=== PATIENT | female | born 1955 | race Caucasian/White ===

== ENCOUNTER 2016-07-27 11:09 | Emergency (ER) | payer OTHER, MEDICAID ==
[2016-07-27] MEDS ORDERED: NS 1,000 ML IV ONE (11:25)
[2016-07-27 11:32] LABS: % IMMATURE GRANULYOCYTES 0.7 % (0.0-1.1); ABSOLUTE IMMATURE GRANULOCYTES 0.04 10^3/uL (0.00-0.10); ADD DIFF? NO; ADD MORPH? NO; ADD SCAN? NO; ATYPICAL LYMPHOCYTE FLAG 0 (0-99); FRAGMENT RBC FLAG 0 (0-99); HEMATOCRIT 42.4 % (38.0-47.0); HEMOGLOBIN 14.2 g/dL (12.6-16.3); LEFT SHIFT FLG 10 (0-99); LIPEMIA HEMOLYSIS FLAG 80 (0-99); MEAN CELL HEMOGLOBIN 27.9 pg (27.9-34.1); MEAN CELL HEMOGLOBIN CONCENTR. 33.5 g/dL (32.4-36.7); MEAN CELL VOLUME 83.3 fL (81.5-99.8); MEAN PLATELET VOLUME 10.6 fL (8.7-11.7); PLATELET CLUMPS FLAG 0 (0-99); PLATELET COUNT 160 10^3/uL (150-400); RED BLOOD CELL COUNT 5.09 10^6/uL (4.18-5.33)
[2016-07-27] MEDS ORDERED: INSULIN REGULAR HUMAN 100 UNIT/ML IVP ONE (11:40)
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
[2016-07-27 11:57] LABS: COLOR YELLOW; LEUKOCYTE ESTERASE,URINE NEGATIVE (NEGATIVE); NITRITE,URINE POSITIVE (NEGATIVE)
[2016-07-27 11:59] LABS: BACTERIA 3+ /hpf (NONE SEEN); MUCUS TRACE /lpf (NONE-1+); WBC,URINE 15-25 /hpf (0-3)
[2016-07-27 12:09] LABS: ALKALINE PHOSPHATASE 176 IU/L (38-126); ANION GAP 11 mEq/L (8-16); BILIRUBIN,TOTAL 0.7 mg/dL (0.1-1.4); BILIRUBIN-CONJUGATED 0.4 mg/dL (0.0-0.5); BILIRUBIN-UNCONJUGATED 0.3 mg/dL (0.0-1.1); CARBON DIOXIDE 26 mEq/l (22-31); CHLORIDE 96 mEq/L (97-110); MAGNESIUM 1.8 mg/dL (1.6-2.3); POTASSIUM 5.3 mEq/L (3.5-5.2); SODIUM 133 mEq/L (134-144)
[2016-07-27 13:02] LABS: ALANINE AMINOTRANSFERASE 51 IU/L (9-52); ALBUMIN 4.2 g/dL (3.5-5.0); ASPARTATE AMINOTRANSFERASE 28 IU/L (14-46); CALCIUM 9.9 mg/dL (8.5-10.4); TOTAL PROTEIN 6.6 g/dL (6.3-8.2)
--- NOTE | 2016-07-27 13:03 | DX ---
AP and lateral chest x-ray 1125 hours. History: Chest pain. Hyperglycemia. Possible infection. Findings: Comparison to February 20, 2016. Central vascular port remains in place with tip in the right atrium. Heart size remains mildly enlarg ed. Pulmonary vasculature is not significant engorged. There is once again poor inspiration with comp ressive changes at the lung bases. There is no new consolidation, effusion, or pneumothorax. Osseous structures are unchanged. Impression: 1. Stable mild cardiomegaly. 2. Stable poor inspiration with mild compressive changes at the lung bases.
[2016-07-27 13:12] LABS: GLOMERULAR FILTRATION RATE 57
[2016-07-27 13:47] LABS: B-HYDROXYBUTYRATE 0.11 mmol/L (0.02-0.27)
[2016-07-27 13:55] VITALS: BP 155/67; PULSE 91; RESP 18; TEMP 97.9; O2SAT 97
[2016-07-27 13:58] LABS: GLUCOSE 557 mg/dL (70-100)
== END 2016-07-27 13:54 | disposition home or self-care (01) ==
DX: E11.65 Type 2 diabetes mellitus with hyperglycemia (principal); I10 Essential (primary) hypertension; Z87.891 Personal history of nicotine dependence
CPT/HCPCS: 71020; 96374; 99284; J1815; 82947-QW

== ENCOUNTER → 2016-11-19 | Outpatient (CLI) | payer OTHER, MEDICAID | LOC: FIMAGING 11:57 | PROVIDERS: ATTEND Internal Medicine | DX: R61 Generalized hyperhidrosis (principal); R06.02 Shortness of breath; D64.9 Anemia, unspecified; E03.9 Hypothyroidism, unspecified; E11.9 Type 2 diabetes mellitus without complications ==

== ENCOUNTER 2016-11-29 12:14 | Inpatient (IN) | payer OTHER, MEDICAID ==
[2016-11-29] MEDS ORDERED: IPRATROPIUM/ALBUTEROL 3 ML DEYVIAL IH ONE (12:25)
--- NOTE | 2016-11-29 12:30 | CPEKG ---
Heart Rate: 103 RR Interval: 583 P-R Interval: 136 QRSD Interval: 92 QT Interval: 348 QTC Interval: 456 P [place]: 63 QRS [place]: 51 T Wave [place]: -9 EKG Severity - BORDERLINE ECG - EKG Impression: SINUS TACHYCARDIA EKG Impression: BORDERLINE T ABNORMALITIES, DIFFUSE LEADS Electronically Signed By: Juan Obregon 29-Nov-2016 12:39:36
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
[2016-11-29 12:51] LABS: ADD DIFF? YES; ADD MORPH? NO; ADD SCAN? NO; ATYPICAL LYMPHOCYTE FLAG 20 (0-99); FRAGMENT RBC FLAG 0 (0-99); HEMATOCRIT 35.3 % (38.0-47.0); HEMOGLOBIN 11.3 g/dL (12.6-16.3); LEFT SHIFT FLG 30 (0-99); LIPEMIA HEMOLYSIS FLAG 80 (0-99); MEAN CELL HEMOGLOBIN 26.8 pg (27.9-34.1); MEAN CELL VOLUME 83.6 fL (81.5-99.8); MEAN PLATELET VOLUME 9.4 fL (8.7-11.7); PLATELET CLUMPS FLAG 0 (0-99); PLATELET COUNT 399 10^3/uL (150-400); RED BLOOD CELL COUNT 4.22 10^6/uL (4.18-5.33); RED CELL DISTRIBUTION WIDTH 14.4 % (11.5-15.2)
[2016-11-29 13:01] LABS: INR 1.08 (0.83-1.16); PROTIME(PATIENT) 13.9 SEC (12.0-15.0)
[2016-11-29 13:02] LABS: APTT 27.7 SEC (23.0-38.0)
[2016-11-29 13:10] LABS: ALANINE AMINOTRANSFERASE 44 IU/L (9-52); ALBUMIN 3.9 g/dL (3.5-5.0); ALKALINE PHOSPHATASE 252 IU/L (38-126); ANION GAP 18 mEq/L (8-16); ASPARTATE AMINOTRANSFERASE 28 IU/L (14-46); BILIRUBIN,TOTAL 0.6 mg/dL (0.1-1.4); BILIRUBIN-CONJUGATED 0.6 mg/dL (0.0-0.5); CARBON DIOXIDE 18 mEq/l (22-31); CHLORIDE 106 mEq/L (97-110); CREATININE 1.5 mg/dL (0.6-1.0); ETHANOL SERUM < 10 mg/dL (0-10); GLOMERULAR FILTRATION RATE 35; GLUCOSE 176 mg/dL (70-100); POTASSIUM 3.6 mEq/L (3.5-5.2); SODIUM 142 mEq/L (134-144); TOTAL PROTEIN 6.7 g/dL (6.3-8.2)
[2016-11-29 13:10] LABS: COLOR YELLOW; LEUKOCYTE ESTERASE,URINE 3+ (NEGATIVE); NITRITE,URINE NEGATIVE (NEGATIVE)
[2016-11-29 13:20] LABS: BACTERIA 4+ /hpf (NONE SEEN); MUCUS TRACE /lpf (NONE-1+); RBC,URINE 50-182 /hpf (0-3); WBC,URINE 50-182 /hpf (0-3)
[2016-11-29 13:21] LABS: TROPONIN I 0.017 ng/mL (0-0.034)
[2016-11-29 13:44] LABS: PLATELET ESTIMATE ADEQUATE (ADEQ)
[2016-11-29 13:45] LABS: MICROCYTES 1+; POLYCHROMASIA 1+
[2016-11-29] MEDS ORDERED: AZITHROMYCIN IV 500 MG in D5W 250 ML IV SCH (14:30)
[2016-11-29] MEDS ORDERED: ALBUTEROL 3 ML DEYVIAL IH PRN (15:11)
[2016-11-29] MEDS ORDERED: ZOLPIDEM TARTRATE 5 MG TAB PO PRN (15:11)
[2016-11-29] MEDS ORDERED: ONDANSETRON 4 MG/2 ML VIAL IVP PRN (15:11)
[2016-11-29] MEDS ORDERED: AZITHROMYCIN IV 500 MG in D5W 250 ML IV ONE (15:30)
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
[2016-11-29] MEDS ORDERED: IOPAMIDOL (ISOVUE 370) 100 ML BTL IV ONE (18:11)
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
[2016-11-29] MEDS: ATORVASTATIN CALCIUM 40 MG TAB PO SCH (19:45)
[2016-11-29] MEDS ORDERED: QUETIAPINE FUMARATE 150 MG PO SCH (21:00)
[2016-11-29] MEDS: ARIPiprazole 10 MG TAB PO SCH (21:28)
[2016-11-29] MEDS: lamoTRIgine 100 MG TAB PO SCH (21:29)
[2016-11-29] MEDS: QUEtiapine FUMARATE 100 MG TAB PO SCH (21:29)
[2016-11-29] MEDS: FLUTICASONE HFA 110 MCG MDI IH SCH (21:41)
[2016-11-29] MEDS: HEPARIN 5,000 UNIT/0.5 ML SYR SC SCH (21:49)
[2016-11-29] MEDS: INSULIN GLARGINE 100 UNITS/ML SYRINGE SC SCH (21:49)
[2016-11-29] MEDS: NS 1,000 ML IV SCH (21:52)
--- NOTE | 2016-11-29 23:56 | HOSPPROG ---
Hospitalist Progress Note Assessment/Plan: CRITICAL CARE NOTE, > 90 MINUTES BEDSIDE CRITICAL CARE TIME IN ADDITION TO THE PREVIOUS VISITS OUTLINED IN H&P Called to see patient for stroke alert. The patient became much more alert in the hour or 2 after my initial visit with her. As she became more alert the nurses noticed that she seemed weak on the left side. As I visit the patient she is now much more alert and interactive. However she still is not really speaking and clearly has left-sided weakness in the upper and lower extremities. She has apparently left handed. Looking back through her day in talking with her mother again is unclear when she was really at her baseline neurologically. Mother did notice there was difficulty with the patient's speaking as she arrived home today and began getting the patient brought here to the hospital. Her vital signs have remained reasonably stable through the day. We did do a stat CT scan which is a repeat study which also showed no bleeding and no stroke. I did review those images myself and did not see evidence of acute abnormality. We had her examined by telemedicine with Dr. Courtney at [facility], and he agreed with her finding of acute left-sided weakness and expressive aphasia. We then proceeded to have her get CT angio of the head and neck which did not show any evidence of acute thrombi or critical stenosis requiring intervention. There is some concern for possible atherosclerosis and it is suggested that Doppler ultrasound may be useful to further assess this as there was enough motion artifact make it hard to assess the exact severity. This is per my review of these films with Dr. Tamir Drake. she has now returned back to the icu. I was present with the patient throughout this process. At this point there is no indication for any vascular intervention. She arrives here with unknown time of onset of her stroke symptoms and has been at the hospital now for 6 hours and is not therefore able to receive tPA safely. We will follow non tPA stroke protocols DIAGNOSIS: ACUTE STROKE, ISCHEMIC WITH LEFT-SIDED WEAKNESS AND SPEECH A DENNIS A Objective: Vital Signs Temp Pulse Resp BP Pulse Ox 36.9 C 67 19 136/58 H 99 11/29/16 23:30 11/29/16 23:30 11/29/16 23:30 11/29/16 23:30 11/29/16 23:30 11/28/16 11/29/16 11/30/16 06:59 06:59 06:59 Intake Total 1855 Output Total 2125 Balance -270 PT 13.9 SEC (12.0-15.0) 11/29/16 12:36 INR 1.08 (0.83-1.16) 11/29/16 12:36 ICD10 Worksheet Patient Problems: Problems Problem Status Onset Acute bronchitis Acute Anaphylaxis Acute Bilateral visual loss Acute Dehydration Acute Epilepsy Acute Medication overdose Acute Pyelonephritis Acute Urinary tract infection Acute Wound abscess Acute
[2016-11-30] MEDS: LEVOTHYROXINE 150 MCG TAB PO SCH (05:32)
[2016-11-30] MEDS: HEPARIN 5,000 UNIT/0.5 ML SYR SC SCH ×3 (05:45→21:14)
[2016-11-30] MEDS: NS 1,000 ML IV SCH ×2 (05:45→23:48)
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
[2016-11-30] MEDS ORDERED: AZITHROMYCIN IV 250 MG in D5W 250 ML IV SCH (09:00)
[2016-11-30] MEDS: FLUTICASONE HFA 110 MCG MDI IH SCH ×2 (09:20→20:47)
[2016-11-30 09:29] LABS: ADD DIFF? YES; ADD MORPH? NO; ADD SCAN? NO; ATYPICAL LYMPHOCYTE FLAG 20 (0-99); FRAGMENT RBC FLAG 0 (0-99); HEMOGLOBIN 10.6 g/dL (12.6-16.3); LEFT SHIFT FLG 40 (0-99); LIPEMIA HEMOLYSIS FLAG 80 (0-99); MEAN CELL HEMOGLOBIN 26.8 pg (27.9-34.1); MEAN CELL HEMOGLOBIN CONCENTR. 31.2 g/dL (32.4-36.7); MEAN CELL VOLUME 86.1 fL (81.5-99.8); MEAN PLATELET VOLUME 9.5 fL (8.7-11.7); PLATELET CLUMPS FLAG 10 (0-99); PLATELET COUNT 369 10^3/uL (150-400); RED BLOOD CELL COUNT 3.95 10^6/uL (4.18-5.33); RED CELL DISTRIBUTION WIDTH 14.6 % (11.5-15.2)
[2016-11-30] MEDS: LORazepam 2 MG/ML INJ IV PRN (09:44)
[2016-11-30 09:56] LABS: PLATELET ESTIMATE ADEQUATE (ADEQ)
[2016-11-30 09:58] LABS: ANION GAP 8 mEq/L (8-16); CALCIUM 8.6 mg/dL (8.5-10.4); CARBON DIOXIDE 22 mEq/l (22-31); CHLORIDE 113 mEq/L (97-110); CREATININE 0.9 mg/dL (0.6-1.0); GLOMERULAR FILTRATION RATE > 60; GLUCOSE 181 mg/dL (70-100); MAGNESIUM 1.5 mg/dL (1.6-2.3); POTASSIUM 3.9 mEq/L (3.5-5.2); SODIUM 143 mEq/L (134-144)
[2016-11-30] MEDS: Liraglutide [Victoza 3-Pak] 1.8 MG SQ SCH (11:30)
[2016-11-30] MEDS: Vilazodone Hcl [Viibryd] 40 MG PO SCH (11:30)
[2016-11-30] MEDS: ATOMOXETINE HCL 100 MG PO SCH (11:35)
[2016-11-30 11:45] LABS: HEMOGLOBIN A1C 8.8 % (4.0-6.0)
[2016-11-30 13:08] LABS: CHOLESTEROL 94 mg/dL (140-220); CHOLESTEROL/HDL RATIO 2.61 RATIO (1.00-4.44); HIGH DENSITY LIPOPROTEIN 36 mg/dL (40-85); LDL/HDL RATIO 0.97 RATIO (1.00-3.22); LOW DENSITY LIPOPROTEIN 35 mg/dL (80-100); NON-HIGH DENSITY LIPOPROTEIN 58 mg/dL (90-129); TRIGLYCERIDE 118 mg/dL (35-135); VERY LOW DENSITY LIPOPROTEINS 23 mg/dL (8-25)
--- NOTE | 2016-11-30 13:30 | ECHO ---
[id number] + + [address] : : [place] [address] : : [phone] + + Adult Echocardiographic Report + + :Name: SRINIVAS TIJERINA JStudy Date: 11/30/2016 09:16 AM : : Hospital Admission Number: [id number] Loc ation: 242: :: 1955 Gender: Female Height: 73 in : :Age: 61 yrs Race: WH Weight: 252 lb : :Reason For Study: Eval for embolic source : : BSA: 2.4 me ters2 : :History: CVA : + + MMode/2D Measurements \T\ Calculations IVSd: 0.90 cm LVIDd: 4.9 cm FS: 48.3 % Ao root diam: 3.2 cm LVPWd: 1.0 cm LVIDs: 2.6 cm EDV(Teich): 115.2 ml ACS: 1.7 cm ESV(Teich): 23.6 ml EF(Teich): 79.5 % Normal Measurement Values: + + :LVIDd (3.5-5.7cm) IVSd (0.6-1.1cm) LVPWd (0.6-1.1cm) Aortic Root (2.0-3.7cm)Left Atrium (1.5-4.0cm): :LV Vol(d) (76-115ml) LV Vol(s) (29-48ml) Ejec Fraction (50-65%)PV Jewel (0.6- 1.2m/s) TV Jewel (0.4-1.0m/s) : :MV E Jewel (0.8-1.0m/s)MV A Jewel (0.3-1.0m/s)LVOT Jewel (0.7-1.2m/s) Asc Ao Jewel ( 0.9-1.8m/s) : + + Doppler Measurements \T\ Calculations MV E max jewel: Ao V2 max: LV V1 max: PA V2 max: 101.7 cm/sec 158.8 cm/sec 100.7 cm/sec 146.6 cm/sec MV A max jewel: Ao max PG: LV V1 max PG: PA max P.9 cm/sec 10.1 mmHg 4.1 mmHg 8.6 mmHg MV E/A: 1.2 TR max jewel: 291.8 cm/sec TR max P.1 mmHg RAP systole: 5.0 mmHg RVSP(TR): 39.1 mmHg Left Ventricle The left ventricle is normal in size. There is normal left ventricular wall thickness. The left ventricular ejection fraction is normal. There is Doppler evidence for diastolic dysfunction. Ejection Fraction = 79%. The left ventricular wall motion is normal. Right Ventricle The right ventricle is normal in size and function. Atria The left atrial size is normal. Right atrial size is normal. Injection of contrast documented no interatrial shunt. The interatrial septum is intact with no evidence for an atrial septal defect. Mitral Valve There is mild mitral annular calcification. There is no evidence of mitral valve prolapse. There is no mitral valve stenosis. There is no mitral regurgitation noted. Tricuspid Valve Normal tricuspid valve. There is trace tricuspid regurgitation. Right ventricular systolic pressure is normal. Aortic Valve The aortic valve is normal in structure and function. The aortic valve is trileaflet. There is no aortic stenosis. There is no aortic insufficiency. Pulmonic Valve The pulmonic valve is normal in structure and function. There is no pulmonic valvular regurgitation. Great Vessels The aortic root is normal size. Pericardium/Pleural There is no pericardial effusion. Conclusion A complete two-dimensional transthoracic echocardiogram was performed (2D, M-mode, Doppler and color flow Doppler). The left ventricular ejection fraction is normal. There is Doppler evidence for diastolic dysfunction. Ejection Fraction = 79%. The left ventricular wall motion is normal. There is mild mitral annular calcification. There is trace tricuspid regurgitation. Right ventricular systolic pressure is normal. The aortic valve is normal in structure and function. The aortic valve is trileaflet. There is no pericardial effusion. Injection of contrast documented no interatrial shunt. The interatrial septum is intact with no evidence for an atrial septal defect. No prior echo Final Reading Physician: Dr Ida Quiroga electronically signed on 11/30/2016 01:29 PM Ordering Physician: Priscila Wild Performed By: Luis A Nam, ROBINSONCS
[2016-11-30] MEDS: DEXMETHYLPHENIDATE PO SCH (13:57)
[2016-11-30] MEDS: lamoTRIgine 100 MG TAB PO SCH ×3 (13:58→21:13)
[2016-11-30] MEDS: FERROUS SULFATE 325 MG TAB PO SCH (13:58)
[2016-11-30] MEDS ORDERED: levETIRAcetam 500 MG in NS 100 ML IV SCH (15:00)
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
[2016-11-30] MEDS: ARIPiprazole 10 MG TAB PO SCH (21:12)
[2016-11-30] MEDS: ATORVASTATIN CALCIUM 40 MG TAB PO SCH (21:12)
[2016-11-30] MEDS: QUEtiapine FUMARATE 100 MG TAB PO SCH (21:13)
[2016-11-30] MEDS: INSULIN GLARGINE 100 UNITS/ML SYRINGE SC SCH (21:57)
[2016-12-01 08:41] LABS: ANION GAP 9 mEq/L (8-16); CALCIUM 8.2 mg/dL (8.5-10.4); CARBON DIOXIDE 22 mEq/l (22-31); CHLORIDE 114 mEq/L (97-110); CREATININE 0.8 mg/dL (0.6-1.0); GLOMERULAR FILTRATION RATE > 60; GLUCOSE 207 mg/dL (70-100); POTASSIUM 3.7 mEq/L (3.5-5.2); SODIUM 145 mEq/L (134-144)
[2016-12-01] MEDS: FLUTICASONE HFA 110 MCG MDI IH SCH ×2 (09:31→21:06)
[2016-12-01] MEDS: ATOMOXETINE HCL 100 MG PO SCH (10:37)
[2016-12-01] MEDS: Liraglutide [Victoza 3-Pak] 1.8 MG SQ SCH (10:38)
[2016-12-01] MEDS: DEXMETHYLPHENIDATE PO SCH (10:38)
[2016-12-01] MEDS: HEPARIN 5,000 UNIT/0.5 ML SYR SC SCH ×3 (10:38→23:23)
[2016-12-01] MEDS: Vilazodone Hcl [Viibryd] 40 MG PO SCH (10:39)
[2016-12-01] MEDS ORDERED: hydrALAZINE 25 MG TAB PO PRN (10:47)
--- NOTE | 2016-12-01 11:25 | NEUROPROG ---
Assessment: Today's total unit time was 30 minutes. I had a discussion with the patient' s mother regarding her condition and her mother says in the past she did have a spinal cord injury about 20 years ago with quadrant paresis and fairly good recovery and this degree of weakness on the left side is definitely a new problem. The patient has a history of pseudoseizures and perhaps real seizures as well and her mother says she also has had an episode of conversion disorder in which she simulated having a stroke with sheree paresis and was asking whether I thought that might be the current explanation for symptoms given the lack of MRI findings. This is a possibility, but my clinical features actually do not strongly support conversion at this stage in my mind. The occupational therapist felt the same way with her exam. Because of the history of spinal cord injury, I think we better look at the cervical spine with MRI to look for any evidence of compressive lesions there to explain this. Subjective: The patient is complaining of some weakness on the left side as well as having pain in her throat when she coughs and some pain in her left shoulder. She continues to have evidence of weakness when working with therapy. Objective: Vital Signs Temp Pulse Resp BP Pulse Ox 37.1 C 85 18 188/105 H 93 12/01/16 08:00 12/01/16 08:00 12/01/16 08:00 12/01/16 09:11 12/01/16 08:00 Laboratory Results 11/30/16 09:00 12/01/16 07:50 11/30/16 12/01/16 12/02/16 05:59 05:59 05:59 Intake Total 3326 4268 Output Total 2620 1025 Balance 706 3243 PT 13.9 SEC (12.0-15.0) 11/29/16 12:36 INR 1.08 (0.83-1.16) 11/29/16 12:36 The patient has limited cognitive abilities but is able to communicate and follows commands. There is clearly left-sided weakness and I do not think this is purely functional weakness. There is relative hyperreflexia on the left compared to the right. She says sensation is altered in the left leg compared to the right. She had brain MRI that showed no evidence of stroke. Allergies/Adverse Reactions: levofloxacin [From Levaquin] Allergy (Severe, Verified 10/11/15 00:02) Anaphylaxis Penicillins Allergy (Verified 12/01/14 20:04) Sulfa (Sulfonamide Antibiotics) Allergy (Verified 12/01/14 20:04)
[2016-12-01] MEDS ORDERED: hydrALAZINE 10 MG TAB PO PRN (12:12)
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
[2016-12-01] MEDS: lamoTRIgine 100 MG TAB PO SCH ×2 (12:27→20:06)
[2016-12-01 12:37] LABS: % SATURATION 17 % (20-55); TOTAL IRON BINDING CAPACITY 254 ug/dL (260-490)
[2016-12-01] MEDS: FERROUS SULFATE 325 MG TAB PO SCH (12:38)
[2016-12-01] MEDS: LEVOTHYROXINE 150 MCG TAB PO SCH (12:38)
[2016-12-01] MEDS: BENZONATATE 100 MG CAP PO PRN ×2 (16:34→20:37)
[2016-12-01] MEDS: ATORVASTATIN CALCIUM 40 MG TAB PO SCH (18:08)
[2016-12-01] MEDS: LORazepam 2 MG/ML INJ IV PRN (19:10)
[2016-12-01] MEDS: hydrALAZINE 20 MG/ML VIAL IVP PRN (19:18)
[2016-12-01] MEDS: QUEtiapine FUMARATE 100 MG TAB PO SCH (20:06)
[2016-12-01] MEDS: ARIPiprazole 10 MG TAB PO SCH (20:06)
[2016-12-01] MEDS ORDERED: D50W 25 GM/50 ML SYR IVP PRN (21:40)
[2016-12-01] MEDS: INSULIN GLARGINE 100 UNITS/ML SYRINGE SC SCH (23:23)
[2016-12-02] MEDS: BENZONATATE 100 MG CAP PO PRN ×4 (00:55→19:53)
[2016-12-02] MEDS: ACETAMINOPHEN 325 MG TAB PO PRN ×3 (00:55→17:14)
[2016-12-02] MEDS: guaiFENesin/CODEINE PHOS 10 ML UDCUP PO PRN ×4 (01:23→19:50)
[2016-12-02] MEDS: HEPARIN 5,000 UNIT/0.5 ML SYR SC SCH ×3 (05:37→22:30)
[2016-12-02] MEDS: LEVOTHYROXINE 150 MCG TAB PO SCH (05:37)
[2016-12-02 06:30] LABS: ANION GAP 6 mEq/L (8-16); CALCIUM 8.5 mg/dL (8.5-10.4); CARBON DIOXIDE 25 mEq/l (22-31); CHLORIDE 109 mEq/L (97-110); CREATININE 0.8 mg/dL (0.6-1.0); GLOMERULAR FILTRATION RATE > 60; GLUCOSE 284 mg/dL (70-100); SODIUM 140 mEq/L (134-144)
[2016-12-02] MEDS: FERROUS SULFATE 325 MG TAB PO SCH (08:27)
[2016-12-02] MEDS: lamoTRIgine 100 MG TAB PO SCH ×2 (08:27→19:51)
--- NOTE | 2016-12-02 08:49 | HOSPPROG ---
Hospitalist Progress Note Assessment/Plan: #Persistent left-sided weakness: Brain MRI negative. h/o conversion d/o, but exam not c/w with that. h/o cervical spinal injury. -C-spine MRI pending. Appreciate Dr. Rendon' input. PT/OT #h/o seizures: 4 partial seizures yesterday, cont home meds #UTI: spoke with micro today. Enterococcus >100K, Staph 5K. Change to Vanc, awaiting sensitivities #Acute encephalopathy: resolved,. Brain MRI negative. likely due to UTI. #Developmental delay: per mom, MS of 12-yr old #JACKELIN: resolved with IVFs #Controlled diabetes: cont glargine, SSI #Acute metabolic acidosis: resolved. Lactate NL. Likely due to dehydration #Diet: diabetic #DVT ppx: Lovenox #Disp: warrants inpt admission with acute UTI, weakness. Cont IV abx, MRI pending Subjective: 4 partial seizures yesterday Objective: Vital Signs Temp Pulse Resp BP Pulse Ox 37.0 C 73 18 161/83 H 95 12/02/16 07:19 12/02/16 07:19 12/02/16 07:19 12/02/16 07:19 12/02/16 07:19 Laboratory Results 11/30/16 09:00 12/02/16 05:40 12/01/16 12/02/16 12/03/16 05:59 05:59 05:59 Intake Total 4268 500 Output Total 1025 2250 Balance 3243 -1750 PT 13.9 SEC (12.0-15.0) 11/29/16 12:36 INR 1.08 (0.83-1.16) 11/29/16 12:36 - Physical Exam Constitutional: obese Eyes: PERRL Ears, Nose, Mouth, Throat: moist mucous membranes, hearing normal Cardiovascular: regular rate and rhythym, no murmur, rub, or gallop Respiratory: no respiratory distress, no rales or rhonchi Gastrointestinal: other (ostomy with pink tissue) Genitourinary: no bladder fullness Skin: warm, normal color Musculoskeletal: other (1/5 UE/LE strength) Neurologic: AAOx3, CN II-XII Intact Psychiatric: anxious ICD10 Worksheet Patient Problems: Problems Problem Status Onset Acute bronchitis Acute Anaphylaxis Acute Bilateral visual loss Acute Dehydration Acute Epilepsy Acute Medication overdose Acute Pyelonephritis Acute Urinary tract infection Acute Wound abscess Acute
[2016-12-02] MEDS: ATOMOXETINE HCL 100 MG PO SCH (09:42)
[2016-12-02] MEDS: Liraglutide [Victoza 3-Pak] 1.8 MG SQ SCH (09:43)
[2016-12-02] MEDS: FLUTICASONE HFA 110 MCG MDI IH SCH ×3 (09:43→22:41)
[2016-12-02] MEDS: DEXMETHYLPHENIDATE PO SCH (09:43)
[2016-12-02] MEDS: Vilazodone Hcl [Viibryd] 40 MG PO SCH (09:44)
[2016-12-02] MEDS: VANCOMYCIN 1.25 GM in D5W 250 ML IV SCH ×2 (09:44→22:30)
[2016-12-02] MEDS: INSULIN LISPRO 100 UNIT/ML SC SCH ×3 (09:44→17:26)
--- NOTE | 2016-12-02 09:46 | NEUROPROG ---
Assessment: Today's total unit time was 30 minutes. I had a discussion with the patient' s mother regarding her condition and her mother says in the past she did have a spinal cord injury about 20 years ago with quadrant paresis and fairly good recovery and this degree of weakness on the left side is definitely a new problem. The patient has a history of pseudoseizures and perhaps real seizures as well and her mother says she also has had an episode of conversion disorder in which she simulated having a stroke with sheree paresis and was asking whether I thought that might be the current explanation for symptoms given the lack of MRI findings. This is a possibility, but my clinical features actually do not strongly support conversion at this stage in my mind. The occupational therapist felt the same way with her exam. Because of the history of spinal cord injury, I think we better look at the cervical spine with MRI to look for any evidence of compressive lesions there to explain this. 12/02/16: Pt continues to have left side weakness of uncertain cause and looking to get MRI c-spine to see if we can find a cause. Seizure disorder with some breakthroughs but stable on meds. Await results of c-spine MRI once it can be performed. Subjective: Pt with no new complaints today. She had about 4 partial seizures yesterday and got some Ativan. None with am. Objective: Vital Signs Temp Pulse Resp BP Pulse Ox 37.0 C 73 18 161/83 H 95 12/02/16 07:19 12/02/16 07:19 12/02/16 07:19 12/02/16 07:19 12/02/16 07:19 Laboratory Results 11/30/16 09:00 12/02/16 05:40 12/01/16 12/02/16 12/03/16 05:59 05:59 05:59 Intake Total 4268 500 Output Total 1025 2250 Balance 3243 -1750 PT 13.9 SEC (12.0-15.0) 11/29/16 12:36 INR 1.08 (0.83-1.16) 11/29/16 12:36 Baseline limited cognitive skill but at least a bit less tearful and more attentive. There remains some relative left side weakness and no other changes. MRI not done yet Allergies/Adverse Reactions: levofloxacin [From Levaquin] Allergy (Severe, Verified 10/11/15 00:02) Anaphylaxis Penicillins Allergy (Verified 12/01/14 20:04) Sulfa (Sulfonamide Antibiotics) Allergy (Verified 12/01/14 20:04)
[2016-12-02] MEDS: CEPACOL LOZENGE PO PRN ×2 (13:17→19:50)
[2016-12-02] MEDS: LORazepam 2 MG/ML INJ IV PRN ×2 (14:08→21:10)
[2016-12-02] MEDS: ATORVASTATIN CALCIUM 40 MG TAB PO SCH (17:12)
[2016-12-02] MEDS: QUEtiapine FUMARATE 100 MG TAB PO SCH (19:50)
[2016-12-02] MEDS: ARIPiprazole 10 MG TAB PO SCH (19:50)
[2016-12-02] MEDS: INSULIN GLARGINE 100 UNITS/ML SYRINGE SC SCH (22:41)
[2016-12-03] MEDS: HEPARIN 5,000 UNIT/0.5 ML SYR SC SCH ×3 (04:36→22:28)
[2016-12-03] MEDS: BENZONATATE 100 MG CAP PO PRN ×2 (04:36→18:01)
[2016-12-03] MEDS: guaiFENesin/CODEINE PHOS 10 ML UDCUP PO PRN ×3 (04:36→19:57)
[2016-12-03] MEDS: LEVOTHYROXINE 150 MCG TAB PO SCH (04:36)
[2016-12-03] MEDS: CEPACOL LOZENGE PO PRN ×3 (04:37→19:58)
[2016-12-03 05:40] LABS: ANION GAP 6 mEq/L (8-16); CALCIUM 8.7 mg/dL (8.5-10.4); CARBON DIOXIDE 28 mEq/l (22-31); CHLORIDE 106 mEq/L (97-110); CREATININE 0.8 mg/dL (0.6-1.0); GLOMERULAR FILTRATION RATE > 60; GLUCOSE 236 mg/dL (70-100); POTASSIUM 4.2 mEq/L (3.5-5.2); SODIUM 140 mEq/L (134-144)
[2016-12-03] MEDS: FLUTICASONE HFA 110 MCG MDI IH SCH ×2 (08:59→23:20)
[2016-12-03] MEDS: NYSTATIN POWDER 15 GM BTL TP SCH ×2 (09:37→22:31)
[2016-12-03] MEDS: INSULIN LISPRO 100 UNIT/ML SC SCH ×3 (09:37→17:37)
[2016-12-03] MEDS: FERROUS SULFATE 325 MG TAB PO SCH (09:38)
[2016-12-03] MEDS: lamoTRIgine 100 MG TAB PO SCH ×2 (09:38→19:58)
[2016-12-03] MEDS: ATOMOXETINE HCL 100 MG PO SCH (09:50)
[2016-12-03] MEDS: DEXMETHYLPHENIDATE PO SCH (09:50)
[2016-12-03] MEDS: Vilazodone Hcl [Viibryd] 40 MG PO SCH (09:50)
[2016-12-03] MEDS: Liraglutide [Victoza 3-Pak] 1.8 MG SQ SCH (09:50)
[2016-12-03] MEDS: VANCOMYCIN 1.25 GM in D5W 250 ML IV SCH ×2 (11:26→23:20)
--- NOTE | 2016-12-03 12:38 | HOSPPROG ---
Hospitalist Progress Note Assessment/Plan: #Persistent left-sided weakness: improved. Brain MRI normal. Cervical MRI with stenosis, but not cause of acute episode. -prior C-spine injury may have been exacerbated by UTI -PT. Likely SNF at [place] #Abnormal bone marrow signal: SPEP pending, Onc outpatient #h/o seizures: intermittent partial seizures #UTI: spoke with micro today. Enterococcus >100K, Staph 5K. Change to Vanc, awaiting sensitivities #Acute encephalopathy: resolved,. Brain MRI negative. Likely due to UTI #Developmental delay: per mom, MS of 12-yr old #JACKELIN: resolved with IVFs #Controlled diabetes: cont glargine, SSI #Acute metabolic acidosis: resolved. Lactate NL. Likely due to dehydration #Bipolar d/o: mother to bring in home meds #Diet: diabetic #DVT ppx: Lovenox #Disp: warrants inpt admission with acute UTI, weakness. Subjective: LE strength improved. Inguinal irritation Objective: Vital Signs Temp Pulse Resp BP Pulse Ox 36.9 C 80 20 175/75 H 93 12/03/16 08:00 12/03/16 08:00 12/03/16 08:00 12/03/16 08:00 12/03/16 08:00 Laboratory Results 11/30/16 09:00 12/03/16 04:50 12/02/16 12/03/16 12/04/16 05:59 05:59 05:59 Intake Total 500 Output Total 2250 2425 Balance -1750 -2425 PT 13.9 SEC (12.0-15.0) 11/29/16 12:36 INR 1.08 (0.83-1.16) 11/29/16 12:36 - Physical Exam Constitutional: other (tearful) Eyes: PERRL Ears, Nose, Mouth, Throat: moist mucous membranes Cardiovascular: regular rate and rhythym Respiratory: no respiratory distress, no rales or rhonchi Gastrointestinal: other (ostomy ) Skin: warm Musculoskeletal: other (moving LE today. 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
--- NOTE | 2016-12-03 16:01 | NEUROPROG ---
Assessment: 1. Developmental delay 2. 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 History of seizure disorder and nonepileptic events 4. confusion and left-sided weakness 5. UTI 35 total minutes floor time; over 50% counseling regarding the patient's complex history. This included a phone call and conversation with her mother. I reviewed all her records and Dr. Hawthorne is consultation. There is no evidence of a stroke her significant cervical or intracranial vascular abnormality based on imaging this point. MRI of the cervical spine shows some degenerative changes without a Significant abnormality explaining her symptoms. 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 Therefore, she may be having some exacerbation of old neurologic deficits in the setting of UTI. There is no evidence of a independent process concurrently happening now. I recommend we treat her UTI and have physical therapy work with her. I do not think further neurologic testing is needed now. Lastly, there was a possible bone lesions seen on MRI of the C-spine. SPEP is pending. She can follow up with Hematology/Oncology as an outpatient. I think she can be discharged from the hospital once cleared from the infection standpoint. No further recommendations. We will continue to follow p.r.n.. Please do not hesitate to call with any questions or if she has any changes in neurologic status. Subjective: no new symptoms Objective: Vital Signs Temp Pulse Resp BP Pulse Ox 36.9 C 80 20 175/75 H 93 12/03/16 08:00 12/03/16 08:00 12/03/16 08:00 12/03/16 08:00 12/03/16 08:00 Laboratory Results 11/30/16 09:00 12/03/16 04:50 12/02/16 12/03/16 12/04/16 05:59 05:59 05:59 Intake Total 500 Output Total 2250 2425 Balance -1750 -2425 PT 13.9 SEC (12.0-15.0) 11/29/16 12:36 INR 1.08 (0.83-1.16) 11/29/16 12:36 static encephalopathy awake and alert, conversant on formal motor testing, she had some drift of the left arm -- but no weakness when testing individual muscles in the left upper extremity. Lower extremities were symmetric. Allergies/Adverse Reactions: levofloxacin [From Levaquin] Allergy (Severe, Verified 10/11/15 00:02) Anaphylaxis Penicillins Allergy (Verified 12/01/14 20:04) Sulfa (Sulfonamide Antibiotics) Allergy (Verified 12/01/14 20:04)
[2016-12-03] MEDS: ATORVASTATIN CALCIUM 40 MG TAB PO SCH (18:01)
[2016-12-03] MEDS: QUEtiapine FUMARATE 100 MG TAB PO SCH (19:58)
[2016-12-03] MEDS: ACETAMINOPHEN 325 MG TAB PO PRN (19:58)
[2016-12-03] MEDS: ARIPiprazole 10 MG TAB PO SCH (20:05)
[2016-12-03] MEDS: LORazepam 2 MG/ML INJ IV PRN (22:29)
[2016-12-03] MEDS: VANCOMYCIN HCL/NORMAL SALINE 250 ML IV SCH (23:17)
[2016-12-03] MEDS: INSULIN GLARGINE 100 UNITS/ML SYRINGE SC SCH (23:18)
[2016-12-03] MEDS: ALBUTEROL 3 ML DEYVIAL IH SCH (23:20)
[2016-12-04] MEDS: ALBUTEROL 3 ML DEYVIAL IH SCH ×4 (05:50→20:56)
[2016-12-04] MEDS: HEPARIN 5,000 UNIT/0.5 ML SYR SC SCH ×3 (06:22→21:15)
[2016-12-04] MEDS: CEPACOL LOZENGE PO PRN ×5 (06:22→18:09)
[2016-12-04] MEDS: BENZONATATE 100 MG CAP PO PRN ×2 (06:22→14:26)
[2016-12-04] MEDS: LEVOTHYROXINE 150 MCG TAB PO SCH (06:23)
[2016-12-04] MEDS: FLUTICASONE HFA 110 MCG MDI IH SCH ×2 (08:56→21:15)
[2016-12-04] MEDS: VANCOMYCIN HCL/NORMAL SALINE 250 ML IV SCH (09:14)
[2016-12-04] MEDS: DEXMETHYLPHENIDATE PO SCH (09:15)
[2016-12-04] MEDS: Vilazodone Hcl [Viibryd] 40 MG PO SCH ×2 (09:15→14:32)
[2016-12-04] MEDS: ATOMOXETINE HCL 100 MG PO SCH (09:15)
[2016-12-04] MEDS: Liraglutide [Victoza 3-Pak] 1.8 MG SQ SCH (09:15)
[2016-12-04] MEDS: NYSTATIN POWDER 15 GM BTL TP SCH ×3 (09:16→22:43)
[2016-12-04] MEDS: guaiFENesin/CODEINE PHOS 10 ML UDCUP PO PRN ×2 (10:17→20:28)
[2016-12-04] MEDS: lamoTRIgine 100 MG TAB PO SCH ×2 (10:19→20:29)
[2016-12-04] MEDS: FERROUS SULFATE 325 MG TAB PO SCH (10:19)
[2016-12-04] MEDS: INSULIN LISPRO 100 UNIT/ML SC SCH ×3 (10:21→17:51)
[2016-12-04 11:04] LABS: COLOR PALE YELLOW; LEUKOCYTE ESTERASE,URINE NEGATIVE (NEGATIVE); NITRITE,URINE NEGATIVE (NEGATIVE)
[2016-12-04 11:12] LABS: BACTERIA TRACE /hpf (NONE SEEN); MUCUS TRACE /lpf (NONE-1+); RBC,URINE 50-182 /hpf (0-3); YEAST PRESENT /hpf (NONE SEEN)
[2016-12-04] MEDS: LORazepam 2 MG/ML INJ IV PRN ×2 (15:43→20:43)
[2016-12-04] MEDS: hydrALAZINE 20 MG/ML VIAL IVP PRN (15:44)
[2016-12-04] MEDS: ACETAMINOPHEN 325 MG TAB PO PRN ×2 (15:53→20:29)
--- NOTE | 2016-12-04 16:08 | HOSPPROG ---
Hospitalist Progress Note Assessment/Plan: #Persistent left-sided weakness: improving daily. Brain MRI normal. Cervical MRI with stenosis, but not cause of acute episode. -prior C-spine injury may have been exacerbated by UTI -PT. Likely SNF at [place] #Abnormal bone marrow signal: SPEP pending, Onc outpatient #h/o seizures: intermittent partial seizures #UTI: VRE grew today. Suspect this is colonization of her urostomy since she improved on CTX that would not have treated this pathogen. She remains afebrile without leukocytosis. Repeat UA with min whites. Will stop abx. #Acute encephalopathy: resolved,. Brain MRI negative. Likely due to UTI #Developmental delay: per mom, MS of 12-yr old #Deconditioning: still weak and mother not able to care for her if cannot walk on own. PT recs SNF. SW to talk with mom about placement options #JACKELIN: resolved with IVFs #Controlled diabetes: cont glargine, SSI #Acute metabolic acidosis: resolved. Lactate NL. Likely due to dehydration #Bipolar d/o: mother to bring in home meds #Diet: diabetic #DVT ppx: Lovenox #Disp: warrants inpt admission with acute UTI, weakness. 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 Laboratory Results 11/30/16 09:00 12/03/16 12/04/16 12/05/16 05:59 05:59 05:59 Intake Total 1775 500 Output Total 2425 2000 1200 Balance -2425 -225 -700 PT 13.9 SEC (12.0-15.0) 11/29/16 12:36 INR 1.08 (0.83-1.16) 11/29/16 12:36 - Physical Exam Constitutional: no apparent distress, other (tearful) Eyes: PERRL Ears, Nose, Mouth, Throat: moist mucous membranes Cardiovascular: regular rate and rhythym Respiratory: no respiratory distress Gastrointestinal: normoactive bowel sounds, soft, non-tender abdomen Genitourinary: no bladder tenderness, other (urostomy) Skin: warm Musculoskeletal: other (LE strength much improved. Walking with leg brace on ) Neurologic: AAOx3 Psychiatric: anxious, other (tearful) ICD10 Worksheet Patient Problems: Problems Problem Status Onset Acute bronchitis Acute VRE (vancomycin-resistant Enterococci) Acute ~12/01/16 Anaphylaxis Acute Bilateral visual loss Acute Dehydration Acute Epilepsy Acute Medication overdose Acute Pyelonephritis Acute Urinary tract infection Acute Wound abscess Acute
[2016-12-04 16:17] LABS: GLUCOSE 357 mg/dL (70-100)
[2016-12-04] MEDS: ATORVASTATIN CALCIUM 40 MG TAB PO SCH (18:08)
[2016-12-04] MEDS: INSULIN GLARGINE 100 UNITS/ML SYRINGE SC SCH (20:29)
[2016-12-04] MEDS: QUEtiapine FUMARATE 100 MG TAB PO SCH (20:30)
[2016-12-04] MEDS: ARIPiprazole 10 MG TAB PO SCH (20:33)
[2016-12-05] MEDS: ALBUTEROL 3 ML DEYVIAL IH SCH ×3 (05:08→15:13)
[2016-12-05] MEDS: BENZONATATE 100 MG CAP PO PRN (05:21)
[2016-12-05] MEDS: LEVOTHYROXINE 150 MCG TAB PO SCH (05:21)
[2016-12-05] MEDS: HEPARIN 5,000 UNIT/0.5 ML SYR SC SCH ×2 (05:22→15:35)
[2016-12-05 06:00] LABS: HEMATOCRIT 31.8 % (38.0-47.0); HEMOGLOBIN 9.9 g/dL (12.6-16.3); MEAN CELL HEMOGLOBIN 27.2 pg (27.9-34.1); MEAN CELL HEMOGLOBIN CONCENTR. 31.1 g/dL (32.4-36.7); MEAN CELL VOLUME 87.4 fL (81.5-99.8); RED BLOOD CELL COUNT 3.64 10^6/uL (4.18-5.33); RED CELL DISTRIBUTION WIDTH 15.1 % (11.5-15.2)
[2016-12-05] MEDS: FLUTICASONE HFA 110 MCG MDI IH SCH (08:46)
[2016-12-05 08:49] LABS: GLUCOSE 383 mg/dL (70-100)
[2016-12-05 08:54] VITALS: RESP 12
[2016-12-05] MEDS: ATOMOXETINE HCL 100 MG PO SCH (09:31)
[2016-12-05] MEDS: DEXMETHYLPHENIDATE PO SCH (09:31)
[2016-12-05] MEDS: Liraglutide [Victoza 3-Pak] 1.8 MG SQ SCH (09:31)
[2016-12-05 09:39] VITALS: BP 157/71; TEMP 98.7
[2016-12-05] MEDS: INSULIN LISPRO 100 UNIT/ML SC SCH ×2 (09:41→12:14)
[2016-12-05] MEDS: lamoTRIgine 100 MG TAB PO SCH (09:41)
[2016-12-05] MEDS: FERROUS SULFATE 325 MG TAB PO SCH (09:41)
[2016-12-05] MEDS: NYSTATIN POWDER 15 GM BTL TP SCH ×2 (09:42→16:30)
[2016-12-05] MEDS: Vilazodone Hcl [Viibryd] 40 MG PO SCH (09:43)
[2016-12-05 10:19] VITALS: O2SAT 95
[2016-12-05] MEDS ORDERED: INSULIN GLARGINE 100 UNITS/ML SYRINGE SC SCH ×2 (11:07→11:30)
--- NOTE | 2016-12-05 11:09 | HOSPPROG ---
Hospitalist Progress Note Assessment/Plan: #Persistent left-sided weakness: improving daily. Brain MRI normal. Cervical MRI with stenosis, but not cause of acute episode. -prior C-spine injury may have been exacerbated by UTI -PT. #Abnormal bone marrow signal: SPEP pending, Onc outpatient #h/o seizures: intermittent partial seizures #UTI: VRE grew 12/04. Suspect this is colonization of her urostomy since she improved on CTX that would not have treated this pathogen. She remains afebrile without leukocytosis. Repeat UA with min whites. Will stop abx. #Acute encephalopathy: resolved,. Brain MRI negative. Likely due to UTI #Developmental delay: per mom, MS of 12-yr old #Deconditioning: still weak and mother not able to care for her if cannot walk on own. PT recs SNF. SW to talk with mom about placement options #JACKELIN: resolved with IVFs #Controlled diabetes: cont glargine, SSI #Acute metabolic acidosis: resolved. Lactate NL. Likely due to dehydration #Bipolar d/o: mother to bring in home meds #Diet: diabetic #DVT ppx: Lovenox #Disp: dc to snf Subjective: no fevers. 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 Laboratory Results 12/05/16 05:30 12/05/16 08:15 12/04/16 12/05/16 12/06/16 05:59 05:59 05:59 Intake Total 1775 2250 Output Total 1999 2800 Balance -225 -550 PT 13.9 SEC (12.0-15.0) 11/29/16 12:36 INR 1.08 (0.83-1.16) 11/29/16 12:36 - Physical Exam Constitutional: obese Eyes: PERRL Ears, Nose, Mouth, Throat: moist mucous membranes, hearing normal Cardiovascular: regular rate and rhythym Respiratory: no respiratory distress Gastrointestinal: normoactive bowel sounds Genitourinary: other (urostomy bag with yellow urine) Skin: warm Musculoskeletal: other (improved left sided strength) Neurologic: AAOx3, CN II-XII Intact Psychiatric: anxious ICD10 Worksheet Patient Problems: Problems Problem Status Onset Acute bronchitis Acute Anaphylaxis Acute Bilateral visual loss Acute Dehydration Acute Epilepsy Acute Medication overdose Acute Pyelonephritis Acute Urinary tract infection Acute VRE (vancomycin-resistant Enterococci) Acute ~12/01/16 Wound abscess Acute
[2016-12-05 12:04] LABS: GLUCOSE 334 mg/dL (70-100)
--- NOTE | 2016-12-05 12:35 | PDIAF ---
- Diagnosis Diagnosis: UTI, Left-sided weakness Code Status: Full Code - Medication Management Discharge Medications: Medications to Continue on Transfer Vilazodone HCl [Viibryd] 40 mg PO DAILY 05/04/14 [Last Taken 11/28/16] ARIPIPRAZOLE [Abilify 20mg] 20 mg PO HS 02/04/15 [Last Taken 11/28/16] Atorvastatin Calcium [Lipitor 40 mg (*)] 60 mg PO DAILY@18 02/20/16 [Last Taken 11/28/16] Dexmethylphenidate HCl [Focalin Xr] 60 mg PO DAILY 02/20/16 [Last Taken 11/28/16 ] Ferrous Sulfate [Ferrous Sulf 325 MG (*)] 325 mg PO DAILY 02/20/16 [Last Taken 04/22/16] Quetiapine Fumarate [Seroquel Xr] 150 mg PO HS 02/20/16 [Last Taken 11/28/16] Etodolac [ETODOLAC] 400 mg PO BID 04/22/16 [Last Taken 11/28/16 21:00] rOPINIRole HCL [Ropinirole HCl] 3 mg PO HS 04/22/16 [Last Taken 11/28/16] Atomoxetine HCl [Strattera] 100 mg PO DAILY 11/29/16 [Last Taken 11/28/16] Fluticasone Hfa 110 Mcg [Flovent 110 MCG Hfa MDI (*)] 2 puffs IH BID 11/29/16 [ Last Taken 11/29/16] Insulin Glargine [Lantus 100 UNITS/ML (*)] 7 units SC HS 11/29/16 [Last Taken ] Levothyroxine [Synthroid 150 mcg (*)] 150 mcg PO DAILY06 11/29/16 [Last Taken ] Liraglutide [Victoza 3-Nestor] 1.8 mg SQ DAILY 11/29/16 [Last Taken 11/28/16] lamoTRIgine [LamICTAL 100 MG (*)] 200 mg PO BID 11/29/16 [Last Taken 11/28/16] metFORMIN HCL [Glucophage 500 mg (*)] 1,000 mg PO BIDMEAL 11/29/16 [Last Taken 11/28/16 18:00] Albuterol [Proventil Inhaler HFA (*)] 1 - 2 puffs IH Q4H #1 lang 12/04/16 [Last Taken Unknown] Discharge Medications: Refer to the Discharge Home Medication list for PRN reason. - Orders Services needed: Registered Nurse, Certified Arch Support Maker, Physical Therapy, Occupational Therapy Diet Recommendation: no restrictions on diet, ADA 2200 consistent carb Diet Texture: Regular Texture Diet, Thin Liquids - Follow Up Care Current Providers and Referrals: Noe Bonilla MD [Primary Care Provider] - As per Instructions
--- NOTE | 2016-12-05 14:15 | GDS ---
[f rep st] DISCHARGE SUMMARY DISCHARGE DIAGNOSES: 1. Persistent left-sided weakness. 2. Abnormal bone marrow signal. 3. History of seizures. 4. Urinary tract infection. 5. 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 6. Acute encephalopathy. 7. Developmental delay. 8. Deconditioning. 9. Acute kidney injury. 10. Uncontrolled diabetes. 11. Acute metabolic acidosis. 12. Bipolar disorder. HISTORY OF PRESENT ILLNESS: The patient is a 61-year-old female with a history of developmental delay (age of an 12-year-old), diabetes, bipolar disorder, seizure disorder, who was brought in by ambulance after her mother returned from home and found her less conversant, weaker than normal. Mom reports she was doing well prior to this event. She did report a small cough. She says that patient normally walks independently with braces on both feet, and she can reasonably get herself food and is normally conversant. At the time of arrival , she was not conversant but awake and following some commands. HOSPITAL COURSE: 1. Acute encephalopathy: This was initially evaluated for stroke. CT head and CTA of neck and head were negative as well as a brain MR. The patient is now at her baseline. Suspect it was secondary to a UTI. 2. Left-sided weakness: Patient initially evaluated for stroke given acute encephalopathy. On 2nd day of admission, she developed acute left-sided weakness. Again, head and neck CTA were negative as well as a brain MRI. She did have a cervical spine MRI that demonstrated multilevel degenerative disease , multilevel degenerative changes most pronounced at C3-C4 through C6-C7 with central canal stenosis. The patient was evaluated by Neurology and suspect that these changes are chronic and not the acute cause of her left-sided weakness. She does have a history of cervical spine trauma 20 years ago that may have been exacerbated by acute illness with UTI. Left-handed strength has improved, but they did recommend that she is discharged to SNF for further treatment. 3. JACKELIN: This is secondary to acute infection. This has resolved with IV fluids. 4. Abnormal bone marrow signal at C7: This was incidental on imaging. No underlying malignancy. SPEP is pending. Patient should follow up with Oncology as an outpatient to further evaluate. 5. History of seizure disorder: She has intermittent seizures daily per Mom. We will resume her current medications. 6. UTI: The patient initially with a dirty UA. Culture with multiple bacteria. Several days after admission, it did grow VRE but suspect this is actually colonization with her chronic urostomy because patient was not being treated for VRE initially and got better. Repeat UA was normal after ceftriaxone, which would not have covered the VRE, making it more likely colonization. The patient remains afebrile without leukocytosis. 7. Developmental delay: Per mother, she has a mental status of an 12-year-old and is at her baseline. 8. Deconditioning: As stated above, discharge to rehab. 9. Uncontrolled diabetes: increase Glargine 15 units qhs 10. Cough: Suspect secondary to bronchitis. This has improved with lozenges and albuterol inhaler. 11. Bipolar disorder: Continue her home medications. DISPOSITION: Patient is stable for discharge. MEDICATIONS: New medications: Albuterol. FOLLOWUP: 1. Oncology for evaluation of abnormal bone marrow signal and SPEP. 2. Primary care physician. 3. Neurologist for seizures. 4. Uptitrate Glargine as needed /[id number]/MODL MTDD
[2016-12-05 15:25] VITALS: PULSE 72
== END 2016-12-05 16:52 | DRG 689 ==
LOC: OBSVTOIN 15:11 → F2N 16:51 → F3E 11-30 18:34
PROVIDERS: ADMIT Internal Medicine; ATTEND Internal Medicine
DX: N39.0 Urinary tract infection, site not specified (principal); B95.2 Enterococcus as the cause of diseases classified elsewhere; G93.40 Encephalopathy, unspecified; N17.9 Acute kidney failure, unspecified; Z16.21 Resistance to vancomycin; R53.1 Weakness; S14.109S Unspecified injury at unspecified level of cervical spinal cord, sequela; E11.65 Type 2 diabetes mellitus with hyperglycemia; I10 Essential (primary) hypertension; E78.5 Hyperlipidemia, unspecified; G40.909 Epilepsy, unspecified, not intractable, without status epilepticus; F89 Unspecified disorder of psychological development; E87.2 Acidosis; F31.9 Bipolar disorder, unspecified; J40 Bronchitis, not specified as acute or chronic; Z93.6 Other artificial openings of urinary tract status; E03.9 Hypothyroidism, unspecified; M79.7 Fibromyalgia; R93.7 Abnormal findings on diagnostic imaging of other parts of musculoskeletal system; M48.02 Spinal stenosis, cervical region
CPT/HCPCS: 80305; 82947-QW; 86334-90; 92526-GN; 92610-GN; 96365; 97116-GP; 97163-GP; 97166-GO; 97530-GO; 97535-GO; A9503; G0463-PO; G0480; G8978-GP-CL; G8979-GP-CJ; G8987-GO-CK; G8988-GO-CI; G8996-GN-CH; G8996-GN-CJ; G8997-GN-CH; G8997-GN-CI; G8998-GN-CH; J0360; J0456; J0696; J1642; J1815; J1953; J2060; J3370; Q9967

== ENCOUNTER → 2017-02-28 | Outpatient (CLI) | payer OTHER, MEDICAID | LOC: FIMAGING 12:49 | PROVIDERS: ATTEND Internal Medicine Hematology & Oncology | DX: D47.2 Monoclonal gammopathy (principal) ==

== ENCOUNTER → 2017-12-09 | Outpatient (CLI) | payer OTHER, MEDICAID | LOC: FIMAGING 15:32 | PROVIDERS: ATTEND Internal Medicine | DX: M75.121 Complete rotator cuff tear or rupture of right shoulder, not specified as traumatic (principal); M12.811 Other specific arthropathies, not elsewhere classified, right shoulder; Z98.890 Other specified postprocedural states ==

== ENCOUNTER → 2018-01-07 | Outpatient (CLI) | payer OTHER, MEDICAID | LOC: FIMAGING 10:14 | PROVIDERS: ATTEND Internal Medicine | DX: Z12.31 Encounter for screening mammogram for malignant neoplasm of breast (principal) ==

== ENCOUNTER 2018-01-14 10:19 | Observation (INO) | payer OTHER, MEDICAID ==
--- NOTE | 2018-01-13 15:16 | PDGENHP ---
History & Physical Chief Complaint: Right shoulder rotator cuff tear History of Present Illness: Mellissa is a pleasant 62 year old female who presented to our office with right shoulder pain. She had two prior rotator cuff repairs and was having symptoms of pain and inability to lift her arm. MRI was ordered and she was found to have recurrent full thickness rotator cuff tear. Risks, benefits and alternatives to surgical and non-surgical treatment were discussed and patient would like to proceed with surgical intervention. Of note, she is wheelchair bound and currently on oxygen Pertinent Past, Social, Family History: Developmental Delay, Diabetes Mellitus, Bipolar, Seizure Disorder, Fibromyalgia, Hyperlipidemia Relevant Physical Exam: Physical exam of the right shoulder demonstrates passive FF to 130, but active FF is limited to about 15 deg. She has passive ER to 25 deg, but active ER is to 10 deg. She has 5/5 strength to biceps and triceps but is weak to ER and IR. She is almost unable to tolerate SS testing. She is tender overlying the greater tuberosity. Distal neurovascularity intact upon a limited exam. Cardiorespiratory Assessment: RRR. CTAB
--- NOTE | 2018-01-14 07:17 | PDHPUP ---
History & Physical Update H&P update statement: This history and physical update is based on an assessment of the patient which was completed after admission or registration (within 24 hours), but prior to the surgery/procedure. H&P update: H&P reviewed & patient examined, no change in patient's condition since H&P completed
[2018-01-14] MEDS ORDERED: EPINEPHrine 1 MG/ML INJ ONE ×2 (10:24→14:31)
[2018-01-14] MEDS ORDERED: BUPIVACAINE/EPI 0.5% 30 ML SDV ONE (10:24)
[2018-01-14] MEDS ORDERED: CLINDAMYCIN 900 MG/DEXTROSE 50 ML IV ONE (11:08)
[2018-01-14] MEDS ORDERED: LIDOCAINE 1% 2 ML INJ ID PRN (11:09)
[2018-01-14] MEDS ORDERED: LR 1,000 ML IV ONE (11:09)
[2018-01-14] MEDS ORDERED: BUPIVACAINE 0.25% 30 ML SDV ONE (14:30)
--- NOTE | 2018-01-14 14:59 | PDANEPAE ---
ANE History of Present Illness torn rotator cuff here for repair ANE Past Medical History - Cardiovascular History Hx Hypertension: No Hx Arrhythmias: No Hx Chest Pain: No Hx Coronary Artery / Peripheral Vascular Disease: No Hx CHF / Valvular Disease: No Hx Palpitations: No Cardiovascular History Comment: CARDIOMEGALY - Pulmonary History Hx COPD: No Hx Asthma/Reactive Airway Disease: No Hx Recent Upper Respiratory Infection: No Hx Oxygen in Use at Home: Yes O2 in Use at Home (L/minute): 24 HOUR O2 Hx Sleep Apnea: Yes Sleep Apnea Screening Result - Last Documented: Positive Pulmonary History Comment: CLARA POS W/CPAP - Neurologic History Hx Cerebrovascular Accident: No Hx Seizures: Yes Hx Dementia: No Neurologic History Comment: 3-5 X WEEK LAST 01/08/2018. SINCE AGE 4. EPILEPSY. RESTLESS LEGS - Endocrine History Hx Diabetes: Yes Endocrine History Comment: DM II. HYPOTHYROID - Renal History Hx Renal Disorders: Yes Renal History Comment: HAS UROSTOMY BAG - Liver History Hx Hepatic Disorders: No - Neurological & Psychiatric Hx Hx Neurological and Psychiatric Disorders: Yes Neurological / Psychiatric History Comment: DEPRESSION. BIPOLAR - Cancer History Hx Cancer: No - Congenital Disorder History Hx Congenital Disorders: No - GI History Hx Gastrointestinal Disorders: Yes Gastrointestinal History Comment: HIATAL HERNIA - Other Health History Other Health History: ANEMIA. SPINAL CORD COMPRESSION 1982 USES CRUTCHES AND BRACES. ADOPTED - Chronic Pain History Chronic Pain: Yes (BACK PAIN & CURRENT L SHOULDER) - Surgical History Prior Surgeries: ACCESS PORT L CHEST. MARGARITO WITH POST ABCESS 4&5 2014. PORT. RT KNEE SCOPE. RT SHLDR SHLDR X3. BLADDER REMVL 2000 FOR CHRONIC INFECTION. APPENDECTOMY. GENIEG BRANDON BEAR Review of Systems Review of Systems: - Exercise capacity Exercise capacity: limited by disability METS (RN): 1 METS - Pacemaker Pacemaker Type: Transvenous ANE Patient History - Allergies Allergies/Adverse Reactions: levofloxacin [From Levaquin] Allergy (Severe, Verified 10/11/15 00:02) Anaphylaxis Penicillins Allergy (Verified 12/01/14 20:04) Sulfa (Sulfonamide Antibiotics) Allergy (Verified 12/01/14 20:04) - Home Medications Home Medications: Atorvastatin Calcium [Lipitor 40 mg (*)] 60 mg PO DAILY@18 02/20/16 [Last Taken 11/28/16] Ferrous Sulfate [Ferrous Sulf 325 MG (*)] 325 mg PO DAILY 02/20/16 [Last Taken 04/22/16] Quetiapine Fumarate [Seroquel Xr] 150 mg PO HS 02/20/16 [Last Taken 11/28/16] rOPINIRole HCL [Ropinirole HCl] 3 mg PO HS 04/22/16 [Last Taken 11/28/16] Levothyroxine [Synthroid 150 mcg (*)] 150 mcg PO DAILY06 11/29/16 [Last Taken ] Liraglutide [Victoza 3-Nestor] 1.8 mg SQ DAILY 11/29/16 [Last Taken 11/28/16] lamoTRIgine [LamICTAL 100 MG (*)] 200 mg PO BID 11/29/16 [Last Taken 11/28/16] Herbals/Supplements -Info Only 01/10/18 [Last Taken Unknown] Humalog 01/10/18 [Last Taken Unknown] - NPO status NPO Status: no food or drink >8 hours NPO Since - Liquids (Date): 01/13/18 NPO Since - Liquids (Time): 08:45 NPO Since - Solids (Date): 01/13/18 NPO Since - Solids (Time): 23:15 - Anes Hx Anes Hx: no prior problems - Smoking Hx Smoking Status: Former smoker - Alcohol Use Alcohol Use: None - Family Anes Hx Family Anes Hx: none Family Hx Anesthesia Complications: NEG ANE Labs/Vital Signs - Vital Signs Blood Pressure: 138/72 Heart Rate: 78 Respiratory Rate: 18 O2 Sat (%): 98 Height: 160.02 cm Weight: 109.316 kg ANE Physical Exam - Airway Neck exam: FROM Mallampati Score: Class 3 Mouth exam: poor dentition, dentures Mouth image: 1 - missing 2 - missing 3 - missing - Pulmonary Pulmonary: no respiratory distress - Cardiovascular Cardiovascular: regular rate and rhythym - ASA Status ASA Status: III ANE Anesthesia Plan Anesthesia Plan: general endotracheal anesthesia Regional Anesthesia: single shot NB, interscalene BP NB
[2018-01-14] MEDS ORDERED: MIDAZOLAM 2 MG/2 ML VIAL IVP ONE (15:03)
[2018-01-14] MEDS ORDERED: LIDOCAINE 2% 100 MG/5 ML SYR ONE (15:18)
[2018-01-14] MEDS ORDERED: ROCURONIUM 50 MG/5 ML VIAL ONE (15:18)
[2018-01-14] MEDS ORDERED: PROPOFOL 200 MG/20 ML VIAL ONE (15:18)
[2018-01-14] MEDS ORDERED: fentaNYL 100 MCG/2 ML INJ ONE ×4 (15:18→18:27)
[2018-01-14] MEDS ORDERED: ROPIVACAINE HCL 150 MG/30 ML INJ ONE (15:22)
[2018-01-14] MEDS ORDERED: MIDAZOLAM 2 MG/2 ML VIAL ONE (15:23)
[2018-01-14] MEDS ORDERED: PHENYLEPHRINE 10 MG/ML SDV ONE (16:08)
[2018-01-14] MEDS ORDERED: CALCIUM CHLORIDE 1 GM/10 ML INJ ONE (16:16)
[2018-01-14] MEDS ORDERED: THROMBIN (BOVINE) 5,000 UNIT VIAL TP ONE (16:16)
[2018-01-14] MEDS ORDERED: SUGAMMADEX SODIUM 200 MG/2 ML VIAL IVP ONE (17:01)
[2018-01-14] MEDS ORDERED: oxyCODONE IR 5 MG TAB PO PRN (17:18)
[2018-01-14] MEDS ORDERED: ONDANSETRON 4 MG/2 ML VIAL IVP PRN (17:18)
[2018-01-14] MEDS ORDERED: ACETAMINOPHEN 500 MG TAB PO PRN (17:18)
[2018-01-14] MEDS ORDERED: NALOXONE HCL 0.4 MG/ML INJ IVP PRN ×2 (17:18→18:55)
[2018-01-14] MEDS ORDERED: HYDROCODONE/APAP 5/325 TAB PO PRN (17:18)
[2018-01-14] MEDS ORDERED: PROMETHAZINE HCL 25 MG/ML INJ IVP PRN (17:18)
--- NOTE | 2018-01-14 17:19 | POSTANESTH ---
Post Anesthetic Evaluation Cardiovascular Status: Normal, Stable, Similar to Pre-Op Cond Respiratory Status: Normal, Stable, Similar to Pre-op Cond. Level of Consciousness/Mental Status: Can Participate in Eval, Mildly Sleepy, Arousable Pain Control: Adequate, Prn Tx Ordered Nausea/Vomiting Control: Adequate, Prn Tx Ordered Complications Possibly Related to Anesthesia: None Noted
--- NOTE | 2018-01-14 17:20 | POSTOPPROG ---
Post Op Note Date of Operation: 01/14/18 Surgeon: Paty Zuniga Dental Front Office Assistant: coltrain Anesthesia: GET(General Endotracheal) Pre-op Diagnosis: r rct with labral tear and OA Procedure: r giana scope with RCR x2 and labral/RC debridement with chondroplasty Inf/Abcess present in the surg proc area at time of surgery?: No Depth: Deep Incisional (Fascial) EBL: 50-100
[2018-01-14] MEDS ORDERED: ACETAMINOPHEN 325 MG TAB PO PRN (17:21)
[2018-01-14] MEDS ORDERED: HYDROmorphONE/DILAUDID 1 MG/ML INJ ONE (17:28)
[2018-01-14] MEDS: HYDROmorphONE/DILAUDID 1 MG/ML INJ IVP PRN ×3 (17:29→18:10)
[2018-01-14] MEDS: fentaNYL 100 MCG/2 ML INJ IVP PRN ×4 (17:40→19:00)
[2018-01-14] MEDS ORDERED: HYDROCODONE/APAP 5/325 TAB ONE (17:59)
--- NOTE | 2018-01-14 18:22 | GOP ---
[f rep st] OPERATIVE REPORT DATE OF OPERATION: 01/14/2018 SURGEON: Paty Zuniga MD RACK CLEANER: Kamaljit Scott, Certified SA, whose presence was medically necessary. ANESTHESIA: By endotracheal intubation. PREOPERATIVE DIAGNOSIS: Right shoulder rotator cuff tear. POSTOPERATIVE DIAGNOSIS: Right shoulder rotator cuff tear with labral tear and grade III chondral ch juan pablo to the glenoid and humerus. PROCEDURE PERFORMED: Right shoulder arthroscopy with rotator cuff repair x2, debridement of labrum r otator cuff and chondroplasty of the glenoid and humeral head. FINDINGS: INDICATIONS: This is a 62-year-old female with a history of multiple surgeries to her right shoulder including 3 different rotator cuff repairs. She has recently developed pain and weakness into the r ight shoulder again and a repeat MRI revealed a rotator cuff tear. She wishes to have surgery in ord er to resolve the problem. DESCRIPTION OF PROCEDURE: Patient brought to the operating room after the right side had been identi fied as correct side by the patient, nurse, and physician. Once in the operating room, she was place d under general anesthesia using endotracheal intubation. Once asleep, she was placed in a beach frances ir position with the right upper extremity sterilely prepped and draped in usual fashion using GSI so lution. Once prepped and draped using her old incision, an incision was made off the posterolateral corner of the acromion with the camera introduced without difficulty. Inspection of the joint reveal ed grade III chondral changes to the glenoid and to the humeral head, tearing of the posterior, super ior, and anterior portions of the labrum as well as a large rotator cuff tear. Therefore, using an i n-to-out technique an anterior portal was made superolateral to the coracoid process using an old sca r with a 6 x 75 mm threaded cannula placed through the anterior portal. A 3.5 mm smooth shaver was u sed to debride and debulk tears of the anterior, posterior, and superior portion of the labrum, as we ll as the loose fragments from the glenoid and the humerus. Once finished, all instrument s removed from the shoulder joint and using the same portal sites were reintroduced into the subacrom ial space. A third incision was made 2 cm lateral to the acromial process in line with the posterior cortex of the clavicle using an old scar. Camera was switched to the lateral portal. She was noted to have a large rotator cuff tear, but the cuff itself was attached well onto the bone and she had a split tear of the rotator cuff between the supraspinatus and the infraspinatus. Camera switched tressa k to the posterior portal. Suture from 1 of her previous repairs was still attached to the anterior portion of the repair with the knot still intact suggesting the tissue had given out around it; there fore, it was removed. A set of #2 FiberWire sutures were passed through the posterior portion of the tear, was tied together, and then a second set of #2 FiberWire was into the more lateral portion of the split tear of the rotator cuff. Once completed, the roof was entirely closed associated with the rotator cuff tear. Pictures were taken, show an adequate coverage of the humeral head. Once finish ed, all instruments were removed from the subacromial space and 30 cc of Marcaine was infused in the subacromial space and 3 portal sites were closed using 3-0 nylon suture in a [id number] type sti tch. Plasma gel was then injected into the subacromial bursa and the wounds were then dressed with X eroform, 4 x 4, and Tegaderm. She was completely undraped in the operating room, had a right upper e xtremity placed within an immobilizer. She was woken up, extubated, transferred onto a stretcher, an d sent to recovery room in good condition. SURGEON: Dr. Paty Zuniga /[id number]/MODL
[2018-01-14] MEDS ORDERED: fentaNYL 100 MCG/2 ML INJ IVP PRN (18:55)
[2018-01-14] MEDS ORDERED: HYDROmorphONE/DILAUDID 1 MG/ML INJ IVP PRN (18:55)
[2018-01-14] MEDS ORDERED: traMADol 50 MG TAB ONE (19:44)
[2018-01-14] MEDS: lamoTRIgine 100 MG TAB PO SCH (20:40)
[2018-01-14] MEDS: TAPENTADOL HCL 50 MG TAB PO PRN (20:40)
[2018-01-14] MEDS ORDERED: QUEtiapine FUMARATE 100 MG TAB PO SCH (21:00)
[2018-01-14] MEDS: OXYCODONE/APAP 5/325 TAB PO PRN (21:58)
[2018-01-15] MEDS: traMADol 50 MG TAB PO SCH ×4 (00:26→17:02)
[2018-01-15] MEDS: TAPENTADOL HCL 50 MG TAB PO PRN ×3 (04:04→17:01)
[2018-01-15] MEDS ORDERED: LEVOTHYROXINE 150 MCG TAB PO SCH (06:00)
[2018-01-15] MEDS: OXYCODONE/APAP 5/325 TAB PO PRN ×2 (07:10→14:12)
[2018-01-15 07:26] VITALS: BP 106/67
[2018-01-15] MEDS: lamoTRIgine 100 MG TAB PO SCH (08:32)
[2018-01-15] MEDS ORDERED: Liraglutide [Victoza 3-Pak] SQ SCH (09:00)
--- NOTE | 2018-01-15 12:43 | SOAPPROG ---
TAYLOR Progress Note Assessment/Plan: Assessment: Keo is POD#1 from right shoulder arthroscopy with rotator cuff repair on . She is doing well with complaints of pain. She reports the sling feels slightly uncomfortable especially at night. PE: Sling is in place. Dressing clean and dry. Sensation is intact to light touch. Patient is NV intact RUE Plan: We did readjust her sling today. We will also try a shoulder immobilizer to see if it is more comfortable for her. We will plan on her being discharged today. She does have a prescription for Oxycodone which was given at her pre operative appointment. She is to remain in the sling at all times. She will follow up in the office in 7-10 days for repeat evaluation and suture removal. 01/15/18 12:39 Objective: Vital Signs Temp Pulse Resp BP Pulse Ox 36.6 C 85 12 106/67 97 01/15/18 07:24 01/15/18 07:24 01/15/18 07:24 01/15/18 07:24 01/15/18 07:24 01/14/18 01/15/18 01/16/18 05:59 05:59 05:59 Intake Total 1190 Output Total 650 Balance 540 ICD10 Worksheet Patient Problems: Problems Problem Status Onset Acute bronchitis Acute Anaphylaxis Acute Bilateral visual loss Acute Dehydration Acute Epilepsy Acute Medication overdose Acute Pyelonephritis Acute Urinary tract infection Acute VRE (vancomycin-resistant Enterococci) Acute ~12/01/16 Wound abscess Acute
--- NOTE | 2018-01-15 13:02 | ASMTCMCOM ---
CM Note CM Note Notes: Pt is a 62 y/o female admitted for a rotator cuff surgery. Pt is developmentally delayed and wheelchair bound. Pts case discussed w/ Tobi RN and [facility]. CM arranged transportation w/ [facility]. CM informed [facility] that pt has her own electric wheelchair. Pt is has private duty caregivers through [facility]. No other needs identified at this time. CM met w/ pt and communicated to her the d/c plan. CM available for changes. Plan: Independent with private duty caregivers Date Signed: 01/15/2018 01:02 PM Electronically Signed By:MARGARETH Parrish
--- NOTE | 2018-01-15 13:03 | ASMTLACE ---
AJAY Length of stay for Answers: 1 day current admission Acuity / Level of Answers: No Care: Did the patient have an inpatient admission? Comorbidities - select Answers: Diabetes (uncontrolled or all that apply controlled) Opioid dependence / Chronic pain Other Notes: Seizure disorder; developmental delay # of Emergency department Answers: 0 visits in the last 6 months Social determinants Answers: Mental health diagnosis (anxiety, depression, pers onality disorders, etc.) Score: 10 Date Signed: 01/15/2018 01:02 PM Electronically Signed By:MARGARETH Parrish
[2018-01-15] MEDS ORDERED: ATORVASTATIN CALCIUM 20 MG TAB PO SCH (18:00)
[2018-01-16] MEDS ORDERED: LEVOTHYROXINE 125 MCG TAB PO SCH (06:00)
== END 2018-01-15 19:10 | disposition home or self-care (01) ==
LOC: FSGY 10:19 → F3N 19:32
PROVIDERS: ADMIT Orthopaedic Surgery; ATTEND Orthopaedic Surgery
PROC: 0LQ14ZZ Repair Right Shoulder Tendon, Percutaneous Endoscopic Approach (ICD-10-PCS; principal; 2018-01-14 12:00)
DX: M75.101 Unspecified rotator cuff tear or rupture of right shoulder, not specified as traumatic (principal); F31.9 Bipolar disorder, unspecified; E11.9 Type 2 diabetes mellitus without complications; E78.00 Pure hypercholesterolemia, unspecified; E03.9 Hypothyroidism, unspecified; E66.9 Obesity, unspecified; G47.33 Obstructive sleep apnea (adult) (pediatric); G25.81 Restless legs syndrome; E53.8 Deficiency of other specified B group vitamins
CPT/HCPCS: 29827; J0171; J1170; J1642; J2001; J2250; J2270; J2370; J2704; J2795; J3010